=== PATIENT | male | born 1985 | race Caucasian/White ===

== ENCOUNTER 2017-06-24 14:53 | Outpatient (CLI) | payer OTHER ==
[~2017-06-24] VITALS: Ht 185.4 cm; Wt 80.0 kg
[2017-06-24 15:19] VITALS: BP 142/84; PULSE 73; RESP 16; Ht 185.4 cm; Wt 80.0 kg
[2017-06-24] MEDS ORDERED: CLIN-73 PO (15:19)
--- NOTE | 2017-06-24 16:06 | PN ---
Date/Time of Note Date/Time of Note DATE: 06/24/17 TIME: 16:02 Outpatient Progress Note Chief Complaint Cellulitis/drug abuse HPI Cellulitis/acute onset, patient had abscess in the left hand on the dorsum, patient had IND, no bleeding or discharge, slight discomfort, Drug abuse/patient has history of heroin drug abuse, patient was using IV drug, Review of Systems Const: No Fever, no chills, no Wt. loss, no Fatigue, normal appetite, no diaphoresis. Eyes: No pain, no discharge, no redness, no visual change, no foreign body. ENT: No pain, no bleeding, no congestion, no sore throat, no dysphagia, no discharge or rhinitis. Lymph: No adenopathy, no tender nodes, no lymphedema. Resp: No SOB, no cough, no sputum, no wheezing, no chest pain. CV: No chest pain, no palpitaions, no BENSON, no PND, no edema. GI: Normal appetite, no pain, no nausea, no vomiting, no diarrhea, no blood, no constipation. : No frequency, no urgency, no dysuria, no hematuria, no flank pain, no discharge, no bleeding. Musc: No no back pain, no neck pain, no knee pain, no restricted ROM. Skin: No rash, no skin lesions patient had incision site on the dorsum of the left hand,, no erythema, no laceration, no bruising, no pruritus. Neuro: No MARTINEZ, no dizziness, no syncope, no seizure, no focal-weakness. Endo: No polyuria, no polydypsia, no dry-skin, no temp-intolerance. Psych: No hallucinations, no depression, no anxiety, no suicidal ideation. Ext: No edema, no pain, no ulcer, no weakness left hand dorsum incision and drainage site, clean, no bleeding or discharge,. Physical Exam Vital Signs Date Time Temp Pulse Resp B/P Pulse Ox O2 Delivery O2 Flow Rate FiO2 06/24/17 15:19 97.8 73 16 142/84 98 Room Air General Appearance: A 31 year-old male who appears well-developed, well- nourished, in no acute distress. HEENT: Head normocephalic, atraumatic. Pupils equal, round, reactive to light and accommodate. Sclerae are no jaundice. Nasal turbinates pink without erythema or nasal discharge. Mucous membranes pink and moist without lesions. Oropharynx clear without any exudate or discharge. NECK: Supple. Trachea midline, No thyromegaly, No cervical lymphadenopathy, No mass, No carotid bruits, No JVD, Carotid pulses 2+ bilaterally. PULMONARY: Clear to auscultaion bilaterally, No retractions, Chest expansion symmetric bilaterally, no rales, no ronchi, no dulness on percussion. CARDIAC: Normal SI and S2, Regular rate and rythm, no murmur, gallop, or rub. GASTROINTESTINAL: Abdomen is soft, non-tender, Non Rigid, No distention, Positive bowel sounds x4 quadrants, Liver normal. SKIN: Warm, dry, no rash, no bruise, no echmosis. Patient has IND left hand dorsum, 2 cm, no bleeding or discharge, EXTREMITIES: Bilateral lower extremities normal, no edema, no phlabitus, pulse palpable, no contracture. MUSCULOSKELETAL: Spine Normal, Non-tender, Normal range of motion, No swelling, no deformity, no clubbing, or cyanosis, the patient has no edema to bilateral lower extremities, dorsalis pedis pulses palpable bilaterally. NEUROLOGIC: The patient is awake, alert, oriented, responding to yes/no questions appropriately, moving all extremities, cranial nerve intact, normal strenght, normal power, normal coordination, normal gait. Allergies Coded Allergies: No Known Drug Allergies (Verified Allergy, Unknown, 06/24/17) PMH Drug abuse Social Hx No smoking or drinking, Family Hx Noncontributory Assessment/Plan Impression Cellulitis left hand Drug abuse Plan Patient education done about the drug and related issues, also educated about cellulitis, Patient has antibiotic, patient continued to take antibiotic, Local dressing will be changed and will see the patient in 1 week, any fever to call us, Medications Home Meds Reported Medications Clindamycin Hcl* (Clindamycin Hcl*) 300 Mg Capsule, 300 MG PO Q8, CAP 06/24/17 DENISE VERA MD Jun 24, 2017 16:05
== END 2017-06-24 16:48 | disposition home or self-care (01) ==
LOC: DCC 14:53
PROVIDERS: ATTEND Internal Medicine
DX: L03.114 Cellulitis of left upper limb (principal); F11.10 Opioid abuse, uncomplicated
CPT/HCPCS: G0463